=== PATIENT | male | born 1960 | race Caucasian/White ===

== ENCOUNTER 2019-12-19 04:55 | Emergency (ER) | payer SELFPAY ==
[2019-12-19 05:07] VITALS: BP 167/94; PULSE 90; RESP 18; TEMP 36.6; O2SAT 95; BMI 26.6
[2019-12-19] MEDS: BACITRACIN OINT 0.9 GM PCKT 3 APPLIC TOP (05:09)
[2019-12-19] MEDS: LIDO 1%/SOD BICARB 8.4% (10ML) 10 ML SYRINGE INJ (05:09)
--- NOTE | 2019-12-19 05:23 | ED.WOUNDLAC ---
HPI - Wound/Laceration General Chief Complaint: Wound/Laceration Stated Complaint: needs stitches in finger Time Seen by Provider: 12/19/19 05:00 Source: patient Mode of arrival: Ambulatory Limitations: no limitations History of Present Illness HPI narrative: 59-year-old gentleman with no significant medical history was cutting potatoes this morning with his right hand and suffered a laceration over the pad of his index finger left side. Was unable to control the bleeding home so comes in for further evaluation. Related Data Allergies Allergy/AdvReac Type Severity Reaction Status Date / Time No Known Drug Allergies Allergy Verified 12/19/19 05:06 Review of Systems Review of Systems Narrative: No recent fevers, cough, abdominal pain, chest pain, palpitations, vomiting, diarrhea Patient History Social History Smoking Status: Current every day smoker Smoking Status: Current every day smoker alcohol intake frequency: a few times a week Substance Use Type: does not use Exam Narrative Exam Narrative: General: Alert appropriate in no acute distress Respiratory: Able to speak in full sentences, no obvious respiratory distress Skin: No obvious rashes, warm and dry Neurologic: Grossly intact no obvious asymmetries or abnormalities Psych: appropriate insight and affect, cooperative Extremity: 2.5 cm laceration to the pad of the left index finger not involving bone nail or nail bed. Neurovascularly intact distal to the laceration. Initial Vital Signs Initial Vital Signs: Vital Signs Temperature 98 F 12/19/19 05:07 Pulse Rate 90 12/19/19 05:07 Respiratory Rate 18 12/19/19 05:07 Blood Pressure 167/94 H 12/19/19 05:07 Pulse Oximetry 95 12/19/19 05:07 Procedures Laceration Repair Index finger laceration: Site: hand Side (If applicable): left Size (cm): 2.5 Description: linear Depth: simple, single layer Local Anesthetic: lidocaine 1% and with bicarb Amount of anesthesia used (mL): 4 Pre-repair: wound explored, irrigated extensively and deep structures intact Skin layer closed with: nylon Size (cm): 4-0 Number of sutures: 5 Technique: simple, interrupted Course Orders Ordered: Discontinued Medications Bacitracin (Bacitracin) 3 applic TOP NOW ONE Stop: 12/19/19 05:05 Last Admin: 12/19/19 05:09 Dose: 3 applic Documented by: ALICIA Diphtheria/Tetanus/Acell Pertussis (Adacel) 0.5 ml IM .ONCE ONE Stop: 12/19/19 05:21 Lidocaine/Sodium Bicarbonate (Buffered Lidocaine 10 Ml Syr) 10 ml INJ NOW ONE Stop: 12/19/19 05:05 Last Admin: 12/19/19 05:09 Dose: 10 ml Documented by: ALICIA Vital Signs Vital signs: Vital Signs - 8 hr 12/19/19 05:07 Temperature 98 F Pulse Rate 90 Respiratory Rate 18 Blood Pressure 167/94 H Pulse Oximetry 95 MDM - Wound/Laceration Medical Records Attestation: I reviewed the patient's medical records. MDM Narrative Medical decision making narrative: 59-year-old with simple, clean laceration to left index finger. Interrupted sutures placed without complication. Tetanus status updated. Wound care instructions and when to return to the ER covered completely. Safe for home discharge Discharge Plan Departure Patient Disposition: Home Clinical Impression: Laceration Instructions: DI for Laceration Repair, Tetanus, Diphtheria (Td) Vaccine Activity Restrictions/Additional Instructions: Thank you for coming in today Your cut did not go into the bone. It took a couple of stitches to stop the bleeding in reapproximate the edges but it came out nicely. Please keep the area as dry as possible the 1st 24 hours. Using a Band-Aid to keep the stitches covered will be much more comfortable wall the West with the wound heals. A stitches can come out on or about December 25. If you notice increasing redness, pain, red streaks weaning from the wound or pus dripping from the wound you need to return immediately. I hope you heal quickly
[2019-12-19] MEDS: TET,DIPH,PERTUSS(ACELL),VAC/PF 0.5 ML SYRINGE IM (05:25)
== END 2019-12-19 05:30 | disposition home or self-care (01) ==
PROVIDERS: Emergency Provider Emergency Medicine
DX: S61.211A Laceration without foreign body of left index finger without damage to nail, initial encounter (principal); W26.0XXA Contact with knife, initial encounter; Z23 Encounter for immunization
CPT/HCPCS: 12001; 90471; 99283; 99284; 90715